=== PATIENT | female | born 1975 | race Caucasian/White ===

== ENCOUNTER 2024-10-13 19:39 | Emergency (ER) | payer OTHER ==
[~2024-10-13] VITALS: Ht 170.2 cm; Wt 125.0 kg
[2024-10-13 20:03] VITALS: O2SAT 100
[2024-10-13 23:11] LABS: BASOPHILS % 0.6 % (0.0-2.0); EOSINOPHILS % 0.8 % (0.0-5.0); HEMOGLOBIN. 12.8 g/dL (12.0-16.0); LYMPHOCYTES % 23.5 % (20.0-50.0); MEAN CORPUSCULAR HGB CONC 32.9 g/dL (31.0-37.0); MEAN CORPUSCULAR VOLUME 88.2 fL (81.0-99.0); MEAN PLATELET VOLUME 9.3 fl (7.4-10.4); MONOCYTES % 4.6 % (2.0-8.0); NEUTROPHILS % 70.5 % (40.0-76.0); PLATELET 246 x1000/uL (130-400); RED BLOOD CELL COUNT 4.42 mill/uL (4.2-5.4); RED CELL DISTRIBUTION WIDTH 14.3 % (11.6-14.6); WHITE BLOOD COUNT 6.8 x1000/uL (4.5-11.0)
[2024-10-13 23:16] LABS: CHLORIDE 105 mEq/L (98-107); POTASSIUM 4.1 mEq/L (3.5-5.1); SODIUM 141 mEq/L (136-145)
[2024-10-13 23:17] LABS: CALCIUM 9.5 mg/dL (8.7-10.4); CARBON DIOXIDE 29 mEq/L (21-32)
[2024-10-13 23:22] LABS: CREATININE 0.7 mg/dL (0.6-1.0); GLUCOSE 110 mg/dL (70-105); UREA NITROGEN BLOOD 9 mg/dL (9-23)
[2024-10-13 23:27] LABS: TROPONIN I HIGH SENSITIVITY < 4 ng/L (3.0-34)
[2024-10-14 04:10] VITALS: BP 143/89; PULSE 75; RESP 18; TEMP 36.50292; O2SAT 100
== END 2024-10-14 04:10 | disposition short-term general hospital (02) ==
LOC: ER 19:39
DX: R07.9 Chest pain, unspecified (principal); I25.10 Atherosclerotic heart disease of native coronary artery without angina pectoris; Z86.73 Personal history of transient ischemic attack (TIA), and cerebral infarction without residual deficits; Z88.5 Allergy status to narcotic agent
CPT/HCPCS: 36415; 71045; 80048; 82962; 83880; 84484; 85025; 93005; 99285